=== PATIENT | male | born 1955 | race African-American/Black ===

== ENCOUNTER 2021-11-10 22:55 | Emergency (ER) | payer OTHER ==
[2021-11-10] MEDS ORDERED: Ketorolac Tromethamine 30 MG/ML VIAL ONE (23:36)
== END 2021-11-11 01:02 | disposition home or self-care (01) ==
LOC: ERS 22:55
DX: S29.012A Strain of muscle and tendon of back wall of thorax, initial encounter (principal); V89.2XXA Person injured in unspecified motor-vehicle accident, traffic, initial encounter
CPT/HCPCS: 71046; 72072; 96372; J1885